=== PATIENT | female | born 1955 | race Caucasian/White ===

== ENCOUNTER → 2017-03-04 | Outpatient (CLI) | payer OTHER ==
[~2017-03-04] MED LIST: ATEN-171 PO; IBUP-1428 PO; LISI1TAB3 PO; NIFE-64 PO; RANI150T3 PO
[2017-03-04 18:23] LABS: ALT/SGPT 21 U/L (12-78); BLOOD UREA NITROGEN 20 mg/dl (7-18); CALCIUM 8.9 mg/dl (8.5-10.1); CARBON DIOXIDE 27 mmol/L (21-32); CREATININE 0.84 mg/dl (0.60-1.20); GLUCOSE 134 mg/dl (70-99); POTASSIUM 4.1 mmol/L (3.5-5.1); SODIUM 138 mmol/L (136-145)
[2017-03-04 18:26] LABS: CHOLESTEROL 200 mg/dl (0-200); LDL CHOLESTEROL (DIRECT) 120 mg/dl
== END ==
LOC: C.LABMFLN 11:27
PROVIDERS: ATTEND Family Medicine
DX: I10 Essential (primary) hypertension (principal); Z86.39 Personal history of other endocrine, nutritional and metabolic disease; Z13.220 Encounter for screening for lipoid disorders; Z12.31 Encounter for screening mammogram for malignant neoplasm of breast